=== PATIENT | male | born 1975 | race Caucasian/White ===

== ENCOUNTER 2016-07-13 21:08 | Observation (INO) | payer OTHER ==
[~2016-07-13] VITALS: Ht 193 cm; Wt 83.5 kg
[2016-07-13 22:03] LABS: BASO # 0.1 10_X3_uL (0.0-0.1); BASO % 0.5 % (0.2-1.2); EOS # 0.2 10_X3_uL (0.0-0.5); EOS % 1.3 % (0.8-7.0); GRAN # 7.8 10_X3_uL (1.8-5.4); GRAN % 64.4 % (34.0-67.9); HEMATOCRIT 38.7 % (40-51); HEMOGLOBIN 13.7 g/dL (13.7-17.5); LYMPH # 2.7 10_X3_uL (1.3-3.6); LYMPH % 22.7 % (21.8-53.1); MEAN CORPUSCULAR HEMOGLOBIN 43.9 pg (27.0-33.0); MEAN CORPUSCULAR HGB CONC 35.4 g/dL (32.0-36.0); MEAN PLATELET VOLUME 9.9 fl (7.5-11.5); MONO # 1.3 10_X3_uL (0.3-0.8); MONO % 11.1 % (5.3-12.2); PLATELET COUNT 410 x10_3/uL (163-337); RED BLOOD COUNT 3.12 x10_6/uL (4.6-6.1); RED CELL DISTRIBUTION WIDTH 16.6 % (11.6-14.4); WHITE BLOOD COUNT 12.1 x10_3/uL (4.2-9.1)
[2016-07-13 22:15] LABS: ALBUMIN 3.7 gm/dL (3.4-5.0); ALKALINE PHOSPHATASE 178 U/L (50-136); ALT/SGPT 61 U/L (7.53-40.17); AST/SGOT 148 U/L (6.66-35.34); BILIRUBIN,TOTAL 0.91 mg/dL (0.0-1.0); BLOOD UREA NITROGEN 10 mg/dL (7-18); CALCIUM 7.9 mg/dL (8.7-10.7); CARBON DIOXIDE 30 mmol/L (21-32); CREATININE 0.6 mg/dL (0.6-1.3); GLUCOSE,RANDOM 129 mg/dL (70-99); INR 1.1 (0.9-1.1); LIPASE 79 U/L (6.75-60.75); PROTHROMBIN TIME (PATIENT) 11.4 SECONDS (9.9-11.1); SODIUM 140 mmol/L (136-145); TOTAL PROTEIN 7.2 gm/dL (6.4-8.2)
[2016-07-13 22:22] LABS: POTASSIUM 2.5 mmol/L (3.5-5.1)
[2016-07-13 22:45] LABS: URINE BILIRUBIN 1+ (NEGATIVE); URINE BLOOD NEGATIVE (NEGATIVE); URINE GLUCOSE (UA) NORMAL (NORMAL); URINE KETONE NEGATIVE (NEGATIVE); URINE LEUKOCYTE ESTERASE TRACE (NEGATIVE); URINE NITRATE NEGATIVE (NEGATIVE); URINE PROTEIN 1+ (NEGATIVE)
[2016-07-13 23:01] LABS: URINE BACTERIA TRACE (NONE SEEN); URINE HYALINE CAST 0-2 /[HPF] (0-1/hpf); URINE MUCUS 1+; URINE RBC 0-5 /[HPF] (0-2); URINE SQUAMOUS EPITHELIAL CELL 0-10 /[HPF] (NONE SEEN); URINE WBC 0-5 /[HPF] (0-3)
[2016-07-14 06:59] LABS: ALBUMIN 2.8 gm/dL (3.4-5.0); ALKALINE PHOSPHATASE 127 U/L (50-136); ALT/SGPT 45 U/L (7.53-40.17); BILIRUBIN,TOTAL 1.04 mg/dL (0.0-1.0); BLOOD UREA NITROGEN 10 mg/dL (7-18); CARBON DIOXIDE 30 mmol/L (21-32); CREATININE 0.5 mg/dL (0.6-1.3); GLUCOSE,RANDOM 93 mg/dL (70-99); SODIUM 139 mmol/L (136-145); TOTAL PROTEIN 5.6 gm/dL (6.4-8.2)
[2016-07-14 07:00] LABS: BASO # 0.1 10_X3_uL (0.0-0.1); BASO % 0.5 % (0.2-1.2); EOS # 0.1 10_X3_uL (0.0-0.5); EOS % 0.8 % (0.8-7.0); GRAN # 8.5 10_X3_uL (1.8-5.4); GRAN % 72.3 % (34.0-67.9); HEMOGLOBIN 10.6 g/dL (13.7-17.5); LYMPH # 1.9 10_X3_uL (1.3-3.6); LYMPH % 16.1 % (21.8-53.1); MEAN CORPUSCULAR HEMOGLOBIN 42.9 pg (27.0-33.0); MEAN CORPUSCULAR HGB CONC 34.2 g/dL (32.0-36.0); MEAN CORPUSCULAR VOLUME 125.5 fL (79-92); MEAN PLATELET VOLUME 10.3 fl (7.5-11.5); MONO # 1.2 10_X3_uL (0.3-0.8); MONO % 10.3 % (5.3-12.2); PLATELET COUNT 268 x10_3/uL (163-337); RED BLOOD COUNT 2.47 x10_6/uL (4.6-6.1); RED CELL DISTRIBUTION WIDTH 16.4 % (11.6-14.4); WHITE BLOOD COUNT 11.8 x10_3/uL (4.2-9.1)
[2016-07-14 07:09] LABS: POTASSIUM 2.9 mmol/L (3.5-5.1)
[2016-07-14 07:11] LABS: AST/SGOT 112 U/L (6.66-35.34)
[2016-07-15 07:18] LABS: HEMATOCRIT 29.4 % (40-51); HEMOGLOBIN 10.2 g/dL (13.7-17.5); MEAN CORPUSCULAR HEMOGLOBIN 43.4 pg (27.0-33.0); MEAN CORPUSCULAR HGB CONC 34.7 g/dL (32.0-36.0); MEAN CORPUSCULAR VOLUME 125.1 fL (79-92); MEAN PLATELET VOLUME 10.4 fl (7.5-11.5); RED BLOOD COUNT 2.35 x10_6/uL (4.6-6.1); RED CELL DISTRIBUTION WIDTH 15.7 % (11.6-14.4); WHITE BLOOD COUNT 8.4 x10_3/uL (4.2-9.1)
[2016-07-15 07:39] LABS: ALBUMIN 2.5 gm/dL (3.4-5.0); ALKALINE PHOSPHATASE 118 U/L (50-136); ALT/SGPT 35 U/L (7.53-40.17); AMYLASE 76 U/L (15.62-74.58); AST/SGOT 73 U/L (6.66-35.34); BILIRUBIN,TOTAL 2.07 mg/dL (0.0-1.0); CALCIUM 7.2 mg/dL (8.7-10.7); CARBON DIOXIDE 26 mmol/L (21-32); CREATININE < 0.5 mg/dL (0.6-1.3); GLUCOSE,RANDOM 99 mg/dL (70-99); LIPASE 61 U/L (6.75-60.75); POTASSIUM 3.7 mmol/L (3.5-5.1); SODIUM 138 mmol/L (136-145); TOTAL PROTEIN 5.2 gm/dL (6.4-8.2)
[2016-07-15 07:45] LABS: BLOOD UREA NITROGEN 7 mg/dL (7-18)
[2016-07-16 06:50] LABS: HEMATOCRIT 32.1 % (40-51); HEMOGLOBIN 11.1 g/dL (13.7-17.5); MEAN CORPUSCULAR HEMOGLOBIN 43.9 pg (27.0-33.0); MEAN CORPUSCULAR HGB CONC 34.6 g/dL (32.0-36.0); MEAN CORPUSCULAR VOLUME 126.9 fL (79-92); MEAN PLATELET VOLUME 10.6 fl (7.5-11.5); RED BLOOD COUNT 2.53 x10_6/uL (4.6-6.1); RED CELL DISTRIBUTION WIDTH 15.2 % (11.6-14.4); WHITE BLOOD COUNT 7.5 x10_3/uL (4.2-9.1)
[2016-07-16 07:00] LABS: ALBUMIN 2.5 gm/dL (3.4-5.0); ALKALINE PHOSPHATASE 125 U/L (50-136); ALT/SGPT 39 U/L (7.53-40.17); AST/SGOT 82 U/L (6.66-35.34); BILIRUBIN,TOTAL 1.56 mg/dL (0.0-1.0); CALCIUM 7.1 mg/dL (8.7-10.7); CARBON DIOXIDE 25 mmol/L (21-32); CREATININE < 0.5 mg/dL (0.6-1.3); GLUCOSE,RANDOM 90 mg/dL (70-99); POTASSIUM 3.1 mmol/L (3.5-5.1); SODIUM 139 mmol/L (136-145); TOTAL PROTEIN 5.6 gm/dL (6.4-8.2)
[2016-07-16 07:05] LABS: BLOOD UREA NITROGEN 3 mg/dL (7-18)
[2016-07-17 17:35] LABS: HBS AG SCREEN Non Reactive (NR); HCV Non Reactive (NR)
== END 2016-07-16 15:40 | disposition home or self-care (01) ==
LOC: ER 21:08 → MS 07-14 02:24
PROVIDERS: Internal Medicine; ADMIT Family Medicine
DX: K56.7 Ileus, unspecified (principal); R10.9 Unspecified abdominal pain; E87.6 Hypokalemia; Z90.49 Acquired absence of other specified parts of digestive tract; F17.210 Nicotine dependence, cigarettes, uncomplicated; R19.00 Intra-abdominal and pelvic swelling, mass and lump, unspecified site; F10.10 Alcohol abuse, uncomplicated; Z79.899 Other long term (current) drug therapy; K76.0 Fatty (change of) liver, not elsewhere classified; S93.402A Sprain of unspecified ligament of left ankle, initial encounter; X50.0XXA Overexertion from strenuous movement or load, initial encounter; Y92.019 Unspecified place in single-family (private) house as the place of occurrence of the external cause; R94.5 Abnormal results of liver function studies; R45.1 Restlessness and agitation
CPT/HCPCS: 36415; 73610; 74022; 80053; 80074; 81001; 82150; 83690; 84132; 85025; 85610; 93005; 93041; 96361; 96365; 96366; 96367; 96372; 96375; 96376; 99070; 99285-25; G0378; G0480; J3480; J7040; Q9967